=== PATIENT | female | born 1940 | race Caucasian/White ===

== ENCOUNTER 2017-08-23 02:24 | Inpatient (IN) | payer MEDICARE, OTHER ==
[~2017-08-23] VITALS: Ht 160 cm; Wt 185.5 kg
[~2017-08-23 02:24] MED LIST: ABAC300; ACET325 PO; ALBU3IS INH; ALBU90OI INH; ALBUTEROL INH; AMLO5 PO; CEPH500 PO; CYCL10 PO; DOCU100 PO; DOXY100 PO; Docusate Sodiu100 M1 PO; FURO40 PO; GABA100 PO; GUAPHELA PO; HYDACE5 PO; HYDCHL25 PO; HYDPAM50 PO; INS70/30I SC; INSR10I SUBQ; INSUAS7030 SC; INSUASPI; LAVAP17G PO; LEVFLO500 PO; LIDO700A20 TOP; LISI5 PO; MECL25 PO; METO25 PO; METO50ER PO; NYST100P TOP; OXYACE5T PO; PANT40 PO; POTCHL20ER PO; PRED5 PO; Prilosec Otc20 MG PO; RXOXYACE PO; SACC250C PO; SENN187 PO; SULTRIDS PO; SYNTHROID0.2 MG PO; Ultram50 MG PO; Valium5 MG PO
[2017-08-23 03:31] LABS: BASOPHILS ABSOLUTE AUTO 0.02 K/mm3 (0.00-0.23); BASOPHILS PERCENT AUTO 0 % (0-2); EOSINOPHILS ABSOLUTE AUTO 0.22 K/mm3 (0.00-0.68); EOSINOPHILS PERCENT AUTO 2 % (0-6); Hematocrit 26.2 % (33.0-51.0); Hemoglobin 7.4 g/dL (11.5-16.0); IMMATURE GRAN ABSOLUTE AUTO 0.05 K/mm3 (0.00-0.10); IMMATURE GRAN PERCENT AUTO 1 % (0-1); LYMPHOCYTES ABSOLUTE AUTO 3.94 K/mm3 (0.84-5.20); LYMPHOCYTES PERCENT AUTO 41 % (21-46); MONOCYTES ABSOLUTE AUTO 0.64 K/mm3 (0.16-1.47); MONOCYTES PERCENT AUTO 7 % (4-13); Mean Corpuscular HGB 30.5 pg (26.0-34.0); Mean Corpuscular HGB Conc 28.2 g/dL (31.5-36.5); Mean Corpuscular Volume 108 fL (80-100); Mean Platelet Volume 9.7 fL (9.1-12.4); NEUTROPHILS ABSOLUTE AUTO 4.76 K/mm3 (1.96-9.15); NEUTROPHILS PERCENT AUTO 50 % (41-73); Platelet Count 302 K/mm3 (150-400); RDW Coefficient Variation 15.1 % (11.7-14.2); RDW Standard Deviation 58.7 fL (35.1-46.3); Red Blood Cell Count 2.43 M/mm3 (3.80-5.20); White Blood Cell Count 9.63 K/mm3 (4.00-11.30)
[2017-08-23 03:42] LABS: Adenovirus Not Detected (NOT DETECT); Bordetella pertussis Not Detected (NOT DETECT); Chlamydophila pneumoniae Not Detected (NOT DETECT); Coronavirus 229E Not Detected (NOT DETECT); Coronavirus HKU1 Not Detected (NOT DETECT); Coronavirus NL63 Not Detected (NOT DETECT); Coronavirus OC43 Not Detected (NOT DETECT); Human Metapneumovirus Not Detected (NOT DETECT); Human Rhinovirus/Enterovirus Not Detected (NOT DETECT); Influenza A/2009-H1 Not Detected (NOT DETECT); Influenza A/H1 Not Detected (NOT DETECT); Influenza A/H3 Not Detected (NOT DETECT); Influenza B Not Detected (NOT DETECT); Mycoplasma pneumoniae Not Detected (NOT DETECT); Parainfluenza Virus 1 Not Detected (NOT DETECT); Parainfluenza Virus 2 Not Detected (NOT DETECT); Parainfluenza Virus 3 Not Detected (NOT DETECT); Parainfluenza Virus 4 Not Detected (NOT DETECT); Respiratory Syncytial Virus Not Detected (NOT DETECT)
[2017-08-23 03:58] LABS: Troponin I 0.033 ng/mL (0.000-0.040)
[2017-08-23 04:10] LABS: Albumin, Blood 3.1 g/dL (3.4-5.0); Albumin/Globulin Ratio 0.7 (0.8-1.8); Bilirubin, Total 0.5 mg/dL (0.1-1.0); Bun/Creatinine Ratio 34.2 (12.0-20.0); Calcium, Blood 9.7 mg/dL (8.5-10.1); Creatinine, Blood 1.14 mg/dL (0.40-1.00); Globulin, Blood 4.4 g/dL (2.2-4.0); Total Protein, Blood 7.5 g/dL (6.4-8.2)
[2017-08-23] MEDS ORDERED: Aspirin EC81 MG PO (05:12)
[2017-08-23] MEDS ORDERED: Prozac20 MG PO (05:14)
[2017-08-23] MEDS ORDERED: CRANBERRY PLUS1 EAC1 PO (05:15)
[2017-08-23] MEDS ORDERED: CYCL10 PO (05:17)
[2017-08-23] MEDS ORDERED: VITAMIN D35000 UNIT PO (05:18)
[2017-08-23] MEDS ORDERED: PROBIOTIC1 EAC1 PO (05:19)
[2017-08-23 05:39] LABS: Influenza A Not Detected (NOT DETECT)
[2017-08-23 05:43] LABS: Bicarbonate Venous 39.8 mmol/L (24.0-30.0); PCO2 Venous 77.7 mmHg (38-42); PO2 Venous 23.7 mmHg (38-42); pH Blood Venous 7.37 (7.34-7.37)
[2017-08-23 05:53] LABS: Percent Saturation 17.2 % (15.0-50.0)
[2017-08-23 11:19] LABS: Hematocrit 25.1 % (33.0-51.0); Hemoglobin 7.2 g/dL (11.5-16.0)
[2017-08-23 22:56] LABS: Stool Occult Blood Guaiac 1 Pos (Neg)
[2017-08-24 05:09] LABS: BASOPHILS ABSOLUTE AUTO 0.01 K/mm3 (0.00-0.23); BASOPHILS PERCENT AUTO 0 % (0-2); EOSINOPHILS PERCENT AUTO 0 % (0-6); Hematocrit 24.7 % (33.0-51.0); Hemoglobin 7.1 g/dL (11.5-16.0); IMMATURE GRAN ABSOLUTE AUTO 0.03 K/mm3 (0.00-0.10); IMMATURE GRAN PERCENT AUTO 0 % (0-1); LYMPHOCYTES ABSOLUTE AUTO 1.01 K/mm3 (0.84-5.20); LYMPHOCYTES PERCENT AUTO 11 % (21-46); MONOCYTES ABSOLUTE AUTO 0.14 K/mm3 (0.16-1.47); MONOCYTES PERCENT AUTO 2 % (4-13); Mean Corpuscular HGB Conc 28.7 g/dL (31.5-36.5); NEUTROPHILS ABSOLUTE AUTO 8.25 K/mm3 (1.96-9.15); NEUTROPHILS PERCENT AUTO 87 % (41-73); NRBC ABSOLUTE 0.02 K/mm3 (0.00-0.02); NRBC Auto 0.2 /100 WBC (0.0-0.2); Platelet Count 323 K/mm3 (150-400); RDW Coefficient Variation 15.4 % (11.7-14.2); RDW Standard Deviation 57.8 fL (35.1-46.3); Red Blood Cell Count 2.37 M/mm3 (3.80-5.20); White Blood Cell Count 9.44 K/mm3 (4.00-11.30)
[2017-08-24 05:14] LABS: Mean Corpuscular Volume 104 fL (80-100)
[2017-08-24 05:26] LABS: Bun/Creatinine Ratio 34.9 (12.0-20.0); Calcium, Blood 9.1 mg/dL (8.5-10.1); Creatinine, Blood 1.26 mg/dL (0.40-1.00); Potassium, Blood 4.9 mmol/L (3.5-5.5)
[2017-08-24 14:19] LABS: Performing Lab BLOODWORKS; Test Name ABID
[2017-08-25 03:53] LABS: BASOPHILS ABSOLUTE AUTO 0.01 K/mm3 (0.00-0.23); BASOPHILS PERCENT AUTO 0 % (0-2); EOSINOPHILS PERCENT AUTO 0 % (0-6); Hematocrit 24.5 % (33.0-51.0); Hemoglobin 7.2 g/dL (11.5-16.0); IMMATURE GRAN ABSOLUTE AUTO 0.03 K/mm3 (0.00-0.10); IMMATURE GRAN PERCENT AUTO 0 % (0-1); LYMPHOCYTES ABSOLUTE AUTO 0.61 K/mm3 (0.84-5.20); LYMPHOCYTES PERCENT AUTO 6 % (21-46); MONOCYTES ABSOLUTE AUTO 0.49 K/mm3 (0.16-1.47); MONOCYTES PERCENT AUTO 5 % (4-13); Mean Corpuscular HGB 30.3 pg (26.0-34.0); Mean Corpuscular HGB Conc 29.4 g/dL (31.5-36.5); Mean Corpuscular Volume 103 fL (80-100); Mean Platelet Volume 9.9 fL (9.1-12.4); NEUTROPHILS ABSOLUTE AUTO 9.23 K/mm3 (1.96-9.15); NEUTROPHILS PERCENT AUTO 89 % (41-73); Platelet Count 322 K/mm3 (150-400); RDW Coefficient Variation 15.9 % (11.7-14.2); Red Blood Cell Count 2.38 M/mm3 (3.80-5.20); White Blood Cell Count 10.37 K/mm3 (4.00-11.30)
[2017-08-25 04:08] LABS: Bun/Creatinine Ratio 42.1 (12.0-20.0); Calcium, Blood 9.2 mg/dL (8.5-10.1); Creatinine, Blood 1.4 mg/dL (0.40-1.00); Potassium, Blood 4.8 mmol/L (3.5-5.5)
[2017-08-25] MEDS ORDERED: INS70/30I PO (10:07)
[2017-08-25] MEDS ORDERED: DELTASONE20 MG PO (10:24)
[2017-08-25] MEDS ORDERED: ALPR.25 PO (10:26)
[2017-08-25] MEDS ORDERED: ACET325 PO (10:27)
[2017-08-25] MEDS ORDERED: AZIT500 PO (10:27)
[2017-08-25] MEDS ORDERED: DULERA 200 MCG/13 GM INH (10:29)
[2017-08-25] MEDS ORDERED: Novolin R100 UNIT/M SC (10:31)
[2017-08-28 12:51] LABS: Result SEE SEPARATE REPORT
== END 2017-08-25 16:30 | disposition home or self-care (01) | DRG 189 ==
LOC: ER 02:24 → PCU 05:23
PROVIDERS: Emergency Medicine; Family Medicine; Internal Medicine
PROC: 5A09357 Assistance with Respiratory Ventilation, Less than 24 Consecutive Hours, Continuous Positive Airway Pressure (ICD-10-PCS; principal; 2017-08-23)
DX: J96.21 Acute and chronic respiratory failure with hypoxia (principal); E11.22 Type 2 diabetes mellitus with diabetic chronic kidney disease; Z99.81 Dependence on supplemental oxygen; J44.1 Chronic obstructive pulmonary disease with (acute) exacerbation; Z68.45 Body mass index [BMI] 70 or greater, adult; N18.3 Chronic kidney disease, stage 3 (moderate); K59.00 Constipation, unspecified; K21.9 Gastro-esophageal reflux disease without esophagitis; I12.9 Hypertensive chronic kidney disease with stage 1 through stage 4 chronic kidney disease, or unspecified chronic kidney disease; D63.1 Anemia in chronic kidney disease; Z23 Encounter for immunization; E03.9 Hypothyroidism, unspecified; Z66 Do not resuscitate; F41.9 Anxiety disorder, unspecified; F32.9 Major depressive disorder, single episode, unspecified; Z87.891 Personal history of nicotine dependence; Z79.4 Long term (current) use of insulin; Z79.52 Long term (current) use of systemic steroids; Z79.899 Other long term (current) drug therapy; Z88.5 Allergy status to narcotic agent; Z88.8 Allergy status to other drugs, medicaments and biological substances; Z74.01 Bed confinement status; E66.01 Morbid (severe) obesity due to excess calories
CPT/HCPCS: 36415; 71045; 80048; 80053; 82272; 82607; 82728; 82746; 82803; 82947; 83540; 83550; 83880; 84484; 85014; 85018; 85025; 86850; 86860; 86870; 86880; 86900; 86901; 86906; 86970; 86978; 87486; 87581; 87633; 87798; 93005; 93010; 94640; 94660; 94762; 99285; G0008; J0456; J1650; J1815; J1817; J1956; J2930; J7050; Q2038

== ENCOUNTER → 2017-09-22 | Outpatient (CLI) | payer MEDICARE, OTHER ==
[~2017-09-22] MED LIST changes: +ALPR.25 PO; +AZIT500 PO; +Advair Hfa 230-12 GM INH; +Aspirin EC81 MG PO; +Bactrim 400-801 EACH PO; +CHOL10002 PO; +CRANBERRY PLUS1 EAC1 PO; +DELTASONE20 MG PO; +DULERA 200 MCG/13 GM INH; +INS70/30I PO; +LEVO-T175 MCG PO; +Novolin R100 UNIT/M SC; +PRED20 PO; +PROBIOTIC1 EAC1 PO; +Prozac20 MG PO; +VITAMIN D35000 UNIT PO
[2017-09-22 13:36] LABS: Bilirubin, Urine Neg (Neg); Blood, Urine 5+ (Neg); Glucose Qualitative, Urine Neg (Neg); Ketones, Urine Neg (Neg); Leukocyte Esterase, Urine 3+ (Neg); Nitrite, Urine Neg (Neg); Protein, Urine 3+ (Neg); Urobilinogen, Urine 1+ (Normal)
[2017-09-22 14:10] LABS: Appearance, Urine Cloudy (Clear); Color, Urine Red (P-Yellow)
[2017-09-22 14:12] LABS: Red Blood Cells, Urine TNTC /hpf (0-2); White Blood Cells, Urine TNTC /hpf (0-5)
[2017-09-22 14:16] LABS: Bacteria Few /hpf; Squamous Epithelial Cells Few /hpf (Few)
== END ==
LOC: LAB SHORT 11:00
PROVIDERS: Registered Nurse
DX: N39.0 Urinary tract infection, site not specified (principal)
CPT/HCPCS: 81001; 87077; 87086; 87186

== ENCOUNTER → 2017-11-03 | Outpatient (CLI) | payer MEDICARE, OTHER ==
[2017-11-03 15:35] LABS: Bilirubin, Urine Neg (Neg); Blood, Urine Neg (Neg); Glucose Qualitative, Urine Neg (Neg); Ketones, Urine 1+ (Neg); Leukocyte Esterase, Urine 2+ (Neg); Nitrite, Urine Neg (Neg); Protein, Urine 1+ (Neg); Specific Gravity, Urine 1.015 (1.003-1.022); Urobilinogen, Urine NORM (Normal)
[2017-11-03 15:42] LABS: Appearance, Urine Clear (Clear); Color, Urine Pale Yellow (P-Yellow)
[2017-11-03 15:43] LABS: Bacteria Few /hpf; Red Blood Cells, Urine 0-2 /hpf (0-2); Squamous Epithelial Cells Few /hpf (Few)
== END | disposition home or self-care (01) ==
LOC: LAB SRC 11:55
PROVIDERS: Nurse Practitioner Family
DX: R30.0 Dysuria (principal)
CPT/HCPCS: 81001; 87077; 87086; 87186

== ENCOUNTER → 2017-11-17 | Outpatient (CLI) | payer MEDICARE, OTHER ==
[~2017-11-17] MED LIST changes: -ALBU90OI INH; +ALBUIS INH; -Advair Hfa 230-12 GM INH; -Bactrim 400-801 EACH PO; -CHOL10002 PO; -LEVO-T175 MCG PO; -PRED20 PO
[2017-11-17 16:07] LABS: Appearance, Urine Clear (Clear); Bilirubin, Urine Neg (Neg); Blood, Urine Neg (Neg); Color, Urine Yellow (P-Yellow); Glucose Qualitative, Urine Neg (Neg); Ketones, Urine Neg (Neg); Leukocyte Esterase, Urine Neg (Neg); Nitrite, Urine Neg (Neg); Protein, Urine Neg (Neg); Urobilinogen, Urine NORM (Normal)
== END ==
LOC: LAB 10:57 → LAB SHORT 10:57
PROVIDERS: Nurse Practitioner Family
DX: N39.0 Urinary tract infection, site not specified (principal)
CPT/HCPCS: 81003

== ENCOUNTER 2018-01-24 03:01 | Inpatient (IN) | payer MEDICARE, OTHER ==
[~2018-01-24] VITALS: Ht 162.6 cm; Wt 190.7 kg
[~2018-01-24 03:01] MED LIST changes: +ALBU90OI INH; -ALBUIS INH
[2018-01-24 03:25] LABS: BASOPHILS ABSOLUTE AUTO 0.03 K/mm3 (0.00-0.23); BASOPHILS PERCENT AUTO 0 % (0-2); EOSINOPHILS ABSOLUTE AUTO 0.17 K/mm3 (0.00-0.68); EOSINOPHILS PERCENT AUTO 2 % (0-6); Hematocrit 19.3 % (33.0-51.0); IMMATURE GRAN ABSOLUTE AUTO 0.05 K/mm3 (0.00-0.10); IMMATURE GRAN PERCENT AUTO 1 % (0-1); LYMPHOCYTES ABSOLUTE AUTO 2.71 K/mm3 (0.84-5.20); LYMPHOCYTES PERCENT AUTO 31 % (21-46); MONOCYTES ABSOLUTE AUTO 0.72 K/mm3 (0.16-1.47); MONOCYTES PERCENT AUTO 8 % (4-13); Mean Corpuscular HGB 22.5 pg (26.0-34.0); Mean Corpuscular HGB Conc 24.9 g/dL (31.5-36.5); Mean Corpuscular Volume 91 fL (80-100); Mean Platelet Volume 9.8 fL (9.1-12.4); NEUTROPHILS ABSOLUTE AUTO 5.14 K/mm3 (1.96-9.15); NEUTROPHILS PERCENT AUTO 58 % (41-73); Platelet Count 276 K/mm3 (150-400); RDW Coefficient Variation 17.9 % (11.7-14.2); RDW Standard Deviation 59.1 fL (35.1-46.3); Red Blood Cell Count 2.13 M/mm3 (3.80-5.20); White Blood Cell Count 8.82 K/mm3 (4.00-11.30)
[2018-01-24 03:26] LABS: Hemoglobin 4.8 g/dL (11.5-16.0)
[2018-01-24 03:34] LABS: PCO2 Arterial 70.1 mmHg (35-45); PO2 Arterial 79.7 mmHg (80-100); pH Blood Arterial 7.36 (7.35-7.45)
[2018-01-24 03:45] LABS: Albumin, Blood 2.6 g/dL (3.4-5.0); Albumin/Globulin Ratio 0.6 (0.8-1.8); Bilirubin, Total 0.2 mg/dL (0.1-1.0); Bun/Creatinine Ratio 17.7 (12.0-20.0); Calcium, Blood 9.1 mg/dL (8.5-10.1); Creatinine, Blood 1.98 mg/dL (0.40-1.00); Potassium, Blood 5.5 mmol/L (3.5-5.5); Total Protein, Blood 6.6 g/dL (6.4-8.2); Troponin I 0.037 ng/mL (0.000-0.040)
[2018-01-24] MEDS ORDERED: LEVO-T175 MCG PO (03:57)
[2018-01-24] MEDS ORDERED: PRED5 PO (04:15)
[2018-01-24] MEDS ORDERED: Bactrim 400-801 EACH PO (14:07)
[2018-01-24] MEDS ORDERED: INS70/30I SC (14:12)
[2018-01-24] MEDS ORDERED: CHOL10002 PO (14:14)
[2018-01-24] MEDS ORDERED: Advair Hfa 230-12 GM INH (14:15)
[2018-01-24] MEDS ORDERED: DOCU100 PO (14:17)
[2018-01-25] MEDS ORDERED: PRED20 PO (14:23)
[2018-01-25] MEDS ORDERED: DOXY100 PO (14:24)
== END 2018-01-25 22:59 | disposition hospice, home (50) | DRG 189 ==
LOC: ER 03:01 → MEDS 04:58
PROVIDERS: Emergency Medicine
DX: J96.21 Acute and chronic respiratory failure with hypoxia (principal); J44.1 Chronic obstructive pulmonary disease with (acute) exacerbation; N17.9 Acute kidney failure, unspecified; Z68.45 Body mass index [BMI] 70 or greater, adult; Z99.81 Dependence on supplemental oxygen; Z51.5 Encounter for palliative care; J96.22 Acute and chronic respiratory failure with hypercapnia; D64.9 Anemia, unspecified; I12.9 Hypertensive chronic kidney disease with stage 1 through stage 4 chronic kidney disease, or unspecified chronic kidney disease; E11.22 Type 2 diabetes mellitus with diabetic chronic kidney disease; N18.9 Chronic kidney disease, unspecified; E03.9 Hypothyroidism, unspecified; K21.9 Gastro-esophageal reflux disease without esophagitis; E66.01 Morbid (severe) obesity due to excess calories; Z87.891 Personal history of nicotine dependence; Z79.4 Long term (current) use of insulin
CPT/HCPCS: 36415; 36600; 71045; 80053; 82803; 82947; 83605; 83735; 83880; 84484; 85025; 86850; 86870; 86900; 86901; 86902; 87081; 93005; 93010; 94010; 94640; 94664; 94667; 94760; 94761; 96365; 96375; 98960; 99285; 99407; J0456; J0696; J7050